=== PATIENT | female | born 1990 | race Caucasian/White ===

== ENCOUNTER 2018-08-10 15:16 | Emergency (ER) | payer OTHER ==
[~2018-08-10] VITALS: Ht 175.3 cm; Wt 65.8 kg
--- NOTE | 2018-08-10 15:20 | NUR ---
PT AMBULATORY TO ER BED 16 C/O ABDOMINAL BLOATING, DISCOMFORT W/ URINARY FREQUENCY FOR THE PAST MONTH BUT STATES GETTING WORST THE PAST WEEK. PT DENIES BURNING SENSATION WHEN URINATING. STATES GAINED WEIGHT. GOWNED AND PLACED ON MONITOR. VSS. AWAITING MD GALVEZ.
[2018-08-10 15:59] LABS: APPEARANCE,URINE Slightly Cloudy (CLEAR); BILIRUBIN,URINE Negative (NEGATIVE); BLOOD, URINE Trace-intact Ery/uL (NEGATIVE); COLOR,URINE Yellow (YELLOW); KETONES,URINE Negative (NEGATIVE); LEUKOCYTE ESTERASE ,URINE Small (NEGATIVE); NITRITE, URINE Negative (NEGATIVE); PH,URINE 7.5 (5.0-8.0); PROTEIN,URINE Negative (NEGATIVE); UGLUCOSE Negative (NEGATIVE); UROBILINOGEN,URINE 0.2 EU/dL (0.2)
[2018-08-10 16:01] LABS: BASOPHILS % (AUTO) 0.8 % (0.0-2.0); EOSINOPHILS % (AUTO) 6.9 % (0.0-6.0); HEMATOCRIT 41 % (33-45); HEMOGLOBIN 13.8 g/dL (11.5-14.8); LYMPHOCYTES # (AUTO) 1.7 /CMM (0.8-4.8); LYMPHOCYTES % (AUTO) 30.3 % (20.0-44.0); MEAN CORPUSCULAR HGB CONC 34 g/dl (31.0-36.0); MEAN CORPUSCULAR VOLUME 89 fL (82-100); MONOCYTES # (AUTO) 0.4 /CMM (0.1-1.30); MONOCYTES % (AUTO) 7.3 % (2.0-12.0); NEUTROPHILS # (AUTO) 3.1 /CMM (1.8-8.9); NEUTROPHILS % (AUTO) 54.7 % (43.0-81.0); PLATELET COUNT (AUTO) 202 /CMM (150-450); RDW COEFFICIENT OF VARIATION 12.1 (11.5-15.0); RED BLOOD CELL COUNT(AUTO) 4.57 MIL/uL (4.0-5.2); WHITE BLOOD COUNT (AUTO) 5.6 K/uL (4.3-11.0)
[2018-08-10 16:02] LABS: BACTERIA,URINE Moderate /HPF (None Seen); SQUAMOUS EPITHELIAL CELL,UR Many /HPF (None Seen); WBC,URINE 0-2 /HPF (0-3)
[2018-08-10 16:12] LABS: CALCIUM, SERUM 8.9 mg/dL (8.5-10.1); CREATININE 0.8 mg/dL (0.6-1.3); POTASSIUM 3.6 mmol/L (3.5-5.1)
[2018-08-10 16:18] LABS: ALBUMIN 3.6 g/dL (3.4-5.0); BILIRUBIN,TOTAL 0.2 mg/dL (0.2-1.0); TOTAL PROTEIN, SERUM 6.9 g/dL (6.4-8.2)
--- NOTE | 2018-08-10 19:56 | NUR ---
CALLED KEVIN FOR READ
--- NOTE | 2018-08-10 20:01 | NUR ---
Patient is resting comfortably in bed with eyes closed. Easily aroused. VSS
--- NOTE | 2018-08-10 20:49 | NUR ---
Patient discharged to home in stable condition. Written and verbal after care instructions given. Patient verbalizes understanding of instruction. IV removed. Catheter intact and site benign. Pressure and 4x4 applied to site. No bleeding noted. AMBULATED WITH STABLE GAIT. INSTRUCTED NOT TO OPERATE OR DRIVE HEAVY MACHINERY
[2018-08-10 20:50] VITALS: BP 122/70
== END 2018-08-10 20:51 | disposition home or self-care (01) ==
LOC: ER 15:22
DX: N30.00 Acute cystitis without hematuria (principal)
CPT/HCPCS: 36415; 76856; 80048; 80076; 81001; 83690; 84702; 84703; 85025; 87077; 87086; 99285; A4606; Z7610; 81000-TC

== ENCOUNTER 2018-11-26 23:54 | Emergency (ER) | payer SELFPAY ==
[~2018-11-26] VITALS: Ht 175.3 cm; Wt 61.2 kg
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
--- NOTE | 2018-11-27 00:13 | NUR ---
Dean Plummer [phone]
--- NOTE | 2018-11-27 00:30 | NUR ---
PT WAS ON HER PHONE WITH HER , RHONDA. PT WAS INTERMITTENTLY CALLING HER BOYFRIEND AND HER AND TEXTING. PT'S HR IS STILL HIGH. DR LOJA ASKED THE PT TO STOP USING THE PHONE AND REST, HER HR WAS TOO HIGH.
--- NOTE | 2018-11-27 00:30 | NUR ---
PT IS C/O CHEST PAIN AND THAT HER "HEART IS POUNDING FAST". DR LOJA IS AT THE BEDSIDE AND PT IS REFUSING MEDICATION OF ANY KIND AT THIS POINT.
--- NOTE | 2018-11-27 00:30 | NUR ---
PT REFUSED ZOFRAN.
[2018-11-27 00:36] LABS: BASOPHILS # (AUTO) 0.1 /CMM (0.0-0.2); BASOPHILS % (AUTO) 0.8 % (0.0-2.0); EOSINOPHILS % (AUTO) 2.7 % (0.0-6.0); HEMATOCRIT 44 % (33-45); HEMOGLOBIN 14.9 g/dL (11.5-14.8); LYMPHOCYTES # (AUTO) 2.1 /CMM (0.8-4.8); LYMPHOCYTES % (AUTO) 22.5 % (20.0-44.0); MEAN CORPUSCULAR HGB CONC 34 g/dl (31.0-36.0); MEAN CORPUSCULAR VOLUME 92 fL (82-100); MONOCYTES # (AUTO) 0.7 /CMM (0.1-1.30); MONOCYTES % (AUTO) 7.5 % (2.0-12.0); NEUTROPHILS # (AUTO) 6.2 /CMM (1.8-8.9); NEUTROPHILS % (AUTO) 66.5 % (43.0-81.0); PLATELET COUNT (AUTO) 250 /CMM (150-450); RED BLOOD CELL COUNT(AUTO) 4.83 MIL/uL (4.0-5.2); WHITE BLOOD COUNT (AUTO) 9.3 K/uL (4.3-11.0)
--- NOTE | 2018-11-27 00:45 | NUR ---
PT REMOVED ALL MONITOR LEADS AND AMBULATED TO THE BATHROOM WITH A STEADY GAIT.
[2018-11-27] MEDS ORDERED: ONDANSETRON HCL/PF 4 MG/2 ML VIAL ONE (00:49)
[2018-11-27] MEDS ORDERED: LORAZEPAM INJ 2 MG/ML VIAL ONE (00:49)
[2018-11-27 00:51] LABS: APPEARANCE,URINE CLEAR (CLEAR); BILIRUBIN,URINE NEGATIVE (NEGATIVE); BLOOD, URINE TRACE Ery/uL (NEGATIVE); COLOR,URINE YELLOW (YELLOW); KETONES,URINE NEGATIVE (NEGATIVE); LEUKOCYTE ESTERASE ,URINE NEGATIVE (NEGATIVE); NITRITE, URINE NEGATIVE (NEGATIVE); PH,URINE 6.5 (5.0-8.0); PROTEIN,URINE TRACE mg/dl (NEGATIVE); UGLUCOSE NEGATIVE (NEGATIVE); UROBILINOGEN,URINE 0.2 EU/dL (0.2)
--- NOTE | 2018-11-27 00:55 | NUR ---
PT IS ON THE PHONE AGAIN. PT WAS TOLD TO TURN OFF THE PHONE AND RELAX THE PHONE CALLS WHERE MAKING HER MORE ANXIOUS. PT WANTED TO SPEAK TO THE DR. DR LOJA IS AT THE BEDSIDE AND TOLD THE PT THAT THE PHONE WOULD BE REMOVED FROM THE ROOM IF SHE CONTINUED TO MAKE PHONE CALLS AND BECOME INCREASINGLY ANXIOUS. PT AGREED.
--- NOTE | 2018-11-27 00:55 | NUR ---
PT AMBULATED BACK TO ER #7 WITH A STEADY GAIT. PT WAS ASKED NOT TO REMOVE THE MONITOR LEADS AND USE THE CALL LIGHT.
[2018-11-27 00:56] LABS: CALCIUM, SERUM 9.1 mg/dL (8.5-10.1); CARBON DIOXIDE 24 mmol/L (21-32); CHLORIDE 104 mmol/L (98-107); GLUCOSE 113 mg/dL (74-106); POTASSIUM 3.5 mmol/L (3.5-5.1); SODIUM SERUM 141 mmol/L (136-145); UREA NITROGEN, BLOOD 10 mg/dL (7-18)
--- NOTE | 2018-11-27 00:58 | NUR ---
PT AMBULATED TO THE BATHROOM WITH A STEADY GAIT. PT STATED THAT SHE HAD TO URINATE.
[2018-11-27 00:59] LABS: ALANINE AMINOTRANSFERASE 22 U/L (12-78); ALBUMIN 4.4 g/dL (3.4-5.0); ALCOHOL, BLOOD < 3 mg/dL (0-0); ALKALINE PHOSPHATASE 58 U/L (46-116); ASPARTATE AMINOTRANSFERASE 16 U/L (15-37); BILIRUBIN,DIRECT 0.1 mg/dL (0.0-0.2); BILIRUBIN,TOTAL 0.3 mg/dL (0.2-1.0); TOTAL PROTEIN, SERUM 7.7 g/dL (6.4-8.2)
[2018-11-27 01:00] LABS: ACETAMINOPHEN 0 ug/ml (10-30); SALICYLATE 0.9 mg/dL (2.8-20.0)
[2018-11-27] MEDS ORDERED: IV NS 0.9% 1,000 ML BAG IV ONE (01:00)
[2018-11-27] MEDS ORDERED: LORAZEPAM INJ 2 MG/ML VIAL IV ONE (01:00)
[2018-11-27 01:03] LABS: BACTERIA,URINE Few /HPF (None Seen); RBC,URINE 0-2 /HPF (0-2); SQUAMOUS EPITHELIAL CELL,UR Many /HPF (None Seen); WBC,URINE 0-2 /HPF (0-3)
--- NOTE | 2018-11-27 01:05 | NUR ---
KNOCKED ON THE BATHROOM DOOR AND PT STATED THAT SHE WAS GOING TO THE BATHROOM STILL.
--- NOTE | 2018-11-27 01:07 | NUR ---
PT SOUNDS LIKE SHE IS VOMITTING AND THE DOOR TO THE BATHROOM IS LOCKED.
[2018-11-27] MEDS: ONDANSETRON HCL/PF 4 MG/2 ML VIAL IV ONE ×2 (01:10→02:30)
--- NOTE | 2018-11-27 01:10 | NUR ---
CALL LIGHT USED. PT HAS TO USE THE BATHROOM.
--- NOTE | 2018-11-27 01:10 | NUR ---
PT RETURNED FROM THE BATHROOM. PT VOMITTED IN THE BATHROOM X 1. PT'S PHONE WAS REMOVED AND PLACED IN THE NURSE'S STATION, PER . PT AMBULATED BACK TO ER BED #[address] THE [address] TO PLEAD WITH THE DR FOR HER PHONE. STATED THAT THE PHONE USE WAS CAUSING HER HR TO GO UP AND STATED THAT SHE WOULD NOT RETURN IT AT THIS TIME. MD ASKED THE PT TO RETURN TO THE ROOM. PT RETURNED TO THE ROOM AND BEGAN CRYING. PT WAS PLACED BACK ON THE MONITOR AND CONTINUOUS PULSE OX. PT REC'D A BOX OF TISSUES.
--- NOTE | 2018-11-27 01:55 | NUR ---
PT REMOVED ALL MONITOR LEADS AND IS SITTING ON THE FLOOR "PRAYING". PT REFUSED TO SIT ON THE BED OR A CHAIR. PT SAID THE THE MONITOR LEADS INTERFERED WITH HER PRAYING. HR IS 108. IS AWARE
--- NOTE | 2018-11-27 02:30 | NUR ---
PT USED THE CALL LIGHT AND WAS LYING ON THE BED WRAPPED UP IN THE GURNEY SHEET. PT STATED THAT SHE FELT NAUSEATED. PT REC'D ZHENG.
--- NOTE | 2018-11-27 02:30 | NUR ---
BOTTOM SHEET WAS FIXED ON THE BED AND PT REC'D 2 WARM BLANKETS.
--- NOTE | 2018-11-27 03:05 | NUR ---
SPOKE TO THE PT RE: [employer]ILI TEACHER WAS IN THE ER AND REVIEWING THE PT'S INFORMATION. PT STATED: "OK, I'M JUST CHILLING".
--- NOTE | 2018-11-27 03:13 | NUR ---
HANH DOMINGUEZ LCSW, IS AT THE BEDSIDE SPEAKING TO THE PT.
--- NOTE | 2018-11-27 04:00 | NUR ---
P'S BOYFRIEND, MCKENZIE, ARRIVED AND IS TAKING THE PT HOME.
--- NOTE | 2018-11-27 04:07 | NUR ---
IV removed. Catheter intact and site benign. Pressure and 4x4 applied to site. No bleeding noted. Patient discharged to home in stable condition. Written and verbal after care instructions given. Patient verbalizes understanding of instruction.
--- NOTE | 2018-11-27 04:07 | NUR ---
PT AMBULATED OUT WITH A STEADY GAIT. VSS. NAD NOTED. PT REC'D GRIPPER SOCKS WHEN AMBULATING OUT.
[2018-11-27 04:45] VITALS: BP 118/65
== END 2018-11-27 04:46 | disposition home or self-care (01) ==
LOC: ER 23:59
DX: F43.10 Post-traumatic stress disorder, unspecified (principal); F41.9 Anxiety disorder, unspecified
CPT/HCPCS: 36415; 80048; 80076; 80305; 80329; 81001; 82962; 84703; 85025; 93005; 96374; 96375; 99284; A4606; G0480 ×2; J2060; J2405; J7030; Z7610; 81000-TC

== ENCOUNTER 2018-12-18 16:32 | Emergency (ER) | payer SELFPAY ==
[~2018-12-18] VITALS: Ht 167.6 cm; Wt 65.8 kg
[2018-12-18] MEDS ORDERED: LORAZEPAM 1 MG TABLET PO ONE (17:00)
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
[2018-12-18] MEDS ORDERED: LORAZEPAM 1 MG TABLET ONE (17:06)
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
--- NOTE | 2018-12-18 20:16 | NUR ---
PT LEFT WITH [employer] OFFICERS SART TEAM; PT LEFT IN STABLE CONDITION; AMBULATORY WITH STEADY GAIT.
[2018-12-18 20:34] VITALS: BP 141/72
== END 2018-12-18 20:37 | disposition home or self-care (01) ==
LOC: ER 16:33
DX: T74.21XA Adult sexual abuse, confirmed, initial encounter (principal); F43.10 Post-traumatic stress disorder, unspecified
CPT/HCPCS: 99283; A4606